=== PATIENT | male | born 1985 | race Caucasian/White ===

== ENCOUNTER → 2017-04-17 | Outpatient (CLI) | payer OTHER ==
[2017-04-17 16:35] LABS: BASO % 1 % (0-3); EOS % 2 % (0-3); HEMATOCRIT 44.5 % (39.0-53.0); HEMOGLOBIN 15.6 g/dL (13.0-17.5); LYMPH # 1.8 x10^3/uL (1.0-4.8); LYMPH % 27 % (24-48); MEAN CORPUSCULAR HEMOGLOBIN 31 pg (25-35); MEAN CORPUSCULAR HGB CONC 35 g/dL (31-37); MEAN CORPUSCULAR VOLUME 89 fL (79-100); MONO % 8 % (0-9); NEUT % 62 % (31-73); PLATELET COUNT 184 x10^3/uL (140-400); RED BLOOD COUNT 4.98 x10^6/uL (4.30-5.70); RED CELL DISTRIBUTION WIDTH 13.1 % (11.5-14.5); WHITE BLOOD COUNT 6.5 x10^3/uL (4.0-11.0)
[2017-04-17 17:07] LABS: ALBUMIN 4.4 g/dL (3.4-5.0); ALBUMIN/GLOBULIN RATIO 1.6 (1.0-1.7); CALCIUM 8.9 mg/dL (8.5-10.1); GFR 85.5; POTASSIUM 4.4 mmol/L (3.5-5.1); TOTAL BILIRUBIN 0.5 mg/dL (0.2-1.0); TOTAL PROTEIN 7.2 g/dL (6.4-8.2)
== END | disposition home or self-care (01) ==
LOC: LAB 16:03
PROVIDERS: ATTEND Psychiatry & Neurology Neurology
DX: R41.840 Attention and concentration deficit (principal)
CPT/HCPCS: 36415; 80053; 82550; 82607; 84443; 85025; 86141

== ENCOUNTER → 2017-04-28 | Outpatient (CLI) | payer OTHER ==
--- NOTE | 2017-05-05 18:13 | EEG ---
DATE OF SERVICE: 04/28/2017 EEG NUMBER: [id number] OBJECTIVE: This is a 32-year-old male patient with history of cognitive function impairment. EEG was requested to evaluate cerebral activity and help rule out seizure. METHODS: Twenty electrodes were applied according to the international 10-20 electrode placement system. EKG monitoring, hyperventilation, intermittent photic stimulation, monopolar and bipolar montages are routinely utilized. The record was obtained on a digital system with video monitoring. FINDINGS: 1. Background: The patient was recorded in the awake, drowsy, and sleep states. The overall background amplitude is 10-20 microvolts. A posterior dominant rhythm of 8-10 Hz is observed. 2. Abnormalities: No specific epileptiform discharge or electrographic seizure is seen. No focal or diffuse slowing. A high peak T-wave noted on EKG monitoring. 3. Activation: Hyperventilation was performed with good efforts and normal response. Intermittent photic stimulation was performed with photic driving. No specific epileptiform discharge or electrographic seizure is induced. IMPRESSION: This EEG is a borderline study for the awake, drowsy, and sleep states. No focal, lateralizing, specific epileptiform discharge, or electrographic seizure is seen. The high peak T-wave on EKG is noted suggest lab study for electrolytes. CODIE GALVAN MD DR: GAGAN/tammy JOB#: [id number] / [id number] HECTOR
== END | disposition home or self-care (01) ==
LOC: RT 13:07
PROVIDERS: ATTEND Psychiatry & Neurology Neurology
DX: R41.840 Attention and concentration deficit (principal)
CPT/HCPCS: 95816

== ENCOUNTER → 2017-06-07 | Outpatient (CLI) | payer OTHER ==
[~2017-06-07] MED LIST: GADOBUTROL 10 MMOL/10 ML VIAL IV ONE
--- NOTE | 2017-06-07 13:37 | RAD ---
MRI of the cervical spine without and with contrast 06/07/2017 CLINICAL HISTORY: Neck pain with bilateral arm radiculopathy, left greater than right. TECHNIQUE: Unenhanced T1-weighted and T2-weighted sagittal and axial, gradient echo axial and inversion recovery sagittal images of the cervical spine were obtained. After the intravenous administration of 10 cc of Gadavist, enhanced T1-weighted sagittal and axial images of the cervical spine were obtained. FINDINGS: Minimal lateral curvature of the cervical spine is seen convex to the left. There is straightening of the normal cervical lordosis. Degenerative signal changes are seen involving all of the disks of the cervical spine. Degenerative signal changes are seen within the marrow surrounding the C4-5, C5-6 and C6-7 discs. Loss of height of the C5-6 disc is noted. A 8 mm hemangioma is seen involving the C6 vertebral body. The cervical spinal cord is normal in morphology, position, and signal characteristics. No area of abnormal contrast enhancement is seen. Mild mucosal thickening is seen involving both maxillary sinuses. At the C2-3, C3-4 and C4-5 disc spaces there are minimal to mild generalized disc bulges. Degenerative changes are seen involving the uncovertebral and facet joints bilaterally. These findings do not result in significant central spinal canal or neural foraminal stenosis. At the C5-6 disc space there is a mild generalized disc bulge. Superimposed on this disc bulge is a right paracentral/lateral focal disc herniation. This measures 4 mm in AP diameter. Degenerative changes are seen involving the uncovertebral and facet joints bilaterally. These findings result in mild right lateral central spinal canal stenosis. No neural foraminal stenosis is seen. No cord impingement is noted. At the C6-7 disc space there is a moderate generalized disc bulge. This is eccentric to the right. Degenerative changes are seen involving the uncovertebral and facet joints bilaterally. These findings efface the anterior CSF without resulting in significant central spinal canal or neural foraminal stenosis. At the C7-T1 disc space there is a minimal generalized disc bulge. This is eccentric to the right. Degenerative changes are seen involving the facet joints bilaterally. These findings do not result in significant central spinal canal or neural foraminal stenosis. IMPRESSION: Degenerative changes are seen involving the cervical spine. These findings result in mild right lateral central spinal canal stenosis at C5-6 without evidence of cord impingement. No neural foraminal stenosis is seen. Electronically signed by: Grayson Foster MD (06/07/2017 1:34 PM) [id number]
== END | disposition home or self-care (01) ==
LOC: MRI 08:45
PROVIDERS: ATTEND Psychiatry & Neurology Neurology
DX: M54.12 Radiculopathy, cervical region (principal); M48.02 Spinal stenosis, cervical region; R20.2 Paresthesia of skin; R53.1 Weakness
CPT/HCPCS: 72156; A9585